=== PATIENT | male | born 1970 | race Caucasian/White ===

== ENCOUNTER 2016-11-20 19:56 | Observation (INO) | payer MEDICAID ==
[~2016-11-20] VITALS: Ht 180.3 cm; Wt 161.2 kg
[2016-11-20] MEDS ORDERED: METO-323 PO (20:11)
[2016-11-20] MEDS ORDERED: ASPI81 PO (20:11)
[2016-11-20] MEDS ORDERED: VENL-68 PO (20:11)
[2016-11-20] MEDS ORDERED: ATOR40TA28 PO (20:11)
[2016-11-20] MEDS ORDERED: TRAZ-144 PO (20:11)
[2016-11-20] MEDS ORDERED: INSLAN SQ (20:11)
[2016-11-20] MEDS ORDERED: BUSP15 PO (20:11)
[2016-11-20] MEDS ORDERED: METF500T4 PO (20:11)
[2016-11-20] MEDS ORDERED: LORazepam 2 MG/ML VIAL IVP ONE (21:15)
[2016-11-20] MEDS ORDERED: LORazepam 2 MG/ML VIAL IVP PRN ×2 (21:45→22:45)
[2016-11-20 22:14] LABS: BASOPHILS # (AUTO) 0.03 K/uL (0.00-0.20); BASOPHILS % (AUTO) 0.3 % (0.0-2.0); EOSINOPHILS # (AUTO) 0.26 K/uL (0.00-0.70); EOSINOPHILS % (AUTO) 2.45 % (1.0-6.0); HEMATOCRIT 39.3 % (41-53); HEMOGLOBIN 12.8 g/dL (13.5-17.5); LYMPHOCYTES # (AUTO) 1.6 K/uL (1.0-4.8); LYMPHOCYTES % (AUTO) 15.6 % (22.0-44.0); MEAN CORPUSCULAR HGB CONC 32.7 G/dL (31.0-37.0); MEAN CORPUSCULAR VOLUME 86 fL (80-100); MONOCYTES # (AUTO) 0.8 K/uL (0.1-1.0); MONOCYTES % (AUTO) 7.3 % (2.0-9.0); NEUTROPHILS # (AUTO) 7.8 K/uL (1.8-7.7); NEUTROPHILS % (AUTO) 74.4 % (40.0-70.0); PLATELET COUNT (AUTO) 253 K/uL (150-450); RED BLOOD CELL COUNT(AUTO) 4.58 MIL/uL (4.50-5.90); RED CELL DISTRIBUTION WIDTH 17.2 % (11.5-14.5); WHITE BLOOD COUNT (AUTO) 10.5 K/uL (4.5-11.0)
[2016-11-20] MEDS ORDERED: ASPIRIN 325 MG EC TABLET PO ONE (22:15)
[2016-11-20 22:28] LABS: ANION GAP 14 mmol/L (8-16); CALCIUM, TOTAL 9.2 mg/dL (8.8-10.5); CARBON DIOXIDE 25 mmol/L (22-29); CHLORIDE 100 mmol/L (98-107); CREATININE 1.01 mg/dL (0.60-1.30); GLOMERULAR FILTR. RATE CALC > 60 mL/min (>60); SODIUM SERUM 139 mmol/L (136-145); UREA NITROGEN, BLOOD 12 mg/dL (7-18)
[2016-11-20 22:34] LABS: ALANINE AMINOTRANSFERASE 43 U/L (12-78); ALBUMIN 3.4 g/dL (3.4-5.0); ASPARTATE AMINOTRANSFERASE 20 U/L (15-37); BILIRUBIN,TOTAL 0.4 mg/dL (0.1-1.0); TOTAL PROTEIN, SERUM 8.2 g/dL (6.4-8.2)
[2016-11-20] MEDS ORDERED: BISACODYL 10 MG RECTAL RECTAL SUPPOSITORY PR PRN ×2 (22:45→23:30)
[2016-11-20] MEDS ORDERED: ACETAMINOPHEN 325 MG TABLET PO PRN ×2 (22:45→23:45)
[2016-11-20] MEDS ORDERED: TraZODone HCL 50 MG TABLET PO SCH (23:00)
[2016-11-20] MEDS ORDERED: INSULIN ASPART 100 UNITS/ML SQ PRN ×2 (23:15→23:45)
[2016-11-20] MEDS ORDERED: DEXTROSE 50%-WATER 25 GM/50 ML SYRINGE IVP PRN ×2 (23:15→23:45)
[2016-11-20] MEDS ORDERED: ALBUTEROL SULFATE 2.5 MG/0.5 ML NEB SOLUTION NEB PRN (23:30)
[2016-11-20] MEDS ORDERED: MAGNESIUM HYDROXIDE SUSPENSION 30 ML UDCUP PO PRN (23:30)
[2016-11-20] MEDS ORDERED: ONDANSETRON HCL 4 MG/2 ML VIAL IVP PRN (23:30)
[2016-11-20] MEDS ORDERED: IPRATROPIUM BROMIDE 0.5 MG/2.5 ML NEB SOLUTION NEB PRN (23:30)
[2016-11-20 23:41] VITALS: BP 123/91
[2016-11-21] MEDS ORDERED: TraZODone HCL 50 MG TABLET PO ONE (00:30)
[2016-11-21] MEDS: LORazepam 2 MG/ML VIAL IVP PRN ×2 (03:00→08:50)
[2016-11-21 04:00] VITALS: BP 121/80
[2016-11-21 06:46] LABS: BASOPHILS # (AUTO) 0.04 K/uL (0.00-0.20); BASOPHILS % (AUTO) 0.4 % (0.0-2.0); EOSINOPHILS # (AUTO) 0.25 K/uL (0.00-0.70); EOSINOPHILS % (AUTO) 2.91 % (1.0-6.0); HEMOGLOBIN 12.7 g/dL (13.5-17.5); LYMPHOCYTES # (AUTO) 1.8 K/uL (1.0-4.8); LYMPHOCYTES % (AUTO) 20.2 % (22.0-44.0); MEAN CORPUSCULAR HEMOGLOBIN 28.6 pg (26.0-34.0); MEAN CORPUSCULAR HGB CONC 33.3 G/dL (31.0-37.0); MEAN CORPUSCULAR VOLUME 86 fL (80-100); MONOCYTES # (AUTO) 0.8 K/uL (0.1-1.0); MONOCYTES % (AUTO) 9.3 % (2.0-9.0); NEUTROPHILS # (AUTO) 5.9 K/uL (1.8-7.7); NEUTROPHILS % (AUTO) 67.1 % (40.0-70.0); PLATELET COUNT (AUTO) 238 K/uL (150-450); RED BLOOD CELL COUNT(AUTO) 4.44 MIL/uL (4.50-5.90); RED CELL DISTRIBUTION WIDTH 16.9 % (11.5-14.5); WHITE BLOOD COUNT (AUTO) 8.7 K/uL (4.5-11.0)
[2016-11-21 06:54] LABS: HEMOGLOBIN A1C 8.8 % (4.5-6.2)
[2016-11-21 07:21] VITALS: BP 120/76
[2016-11-21 07:26] LABS: IRON, SERUM 58 mcg/dL (50-175); TOTAL IRON BINDING CAPACITY 321 mcg/dL (250-450)
[2016-11-21 07:44] LABS: ALANINE AMINOTRANSFERASE 41 U/L (12-78); ALBUMIN 3.2 g/dL (3.4-5.0); ANION GAP 10 mmol/L (8-16); ASPARTATE AMINOTRANSFERASE 21 U/L (15-37); BILIRUBIN,TOTAL 0.3 mg/dL (0.1-1.0); CALCIUM, TOTAL 9.3 mg/dL (8.8-10.5); CARBON DIOXIDE 26 mmol/L (22-29); CHLORIDE 102 mmol/L (98-107); CHOL/HDL RATIO 4.5 (4.2-7.3); CREATININE 0.88 mg/dL (0.60-1.30); FERRITIN 69 ng/mL (26-388); GLOMERULAR FILTR. RATE CALC > 60 mL/min (>60); PHOSPHORUS 4.6 mg/dL (2.5-4.9); POTASSIUM 3.5 mmol/L (3.5-5.1); SODIUM SERUM 138 mmol/L (136-145); THYROID STIMULATING HORMONE 1.44 uIU/mL (0.36-3.74); TOTAL PROTEIN, SERUM 8.1 g/dL (6.4-8.2); UREA NITROGEN, BLOOD 12 mg/dL (7-18)
[2016-11-21] MEDS ORDERED: MetFORMIN HCL 500 MG TABLET PO SCH ×2 (08:00)
[2016-11-21] MEDS ORDERED: ASPIRIN 81 MG EC TABLET PO SCH ×2 (08:00)
[2016-11-21 08:29] LABS: VITAMIN B12 LEVEL 376 pg/mL (211-911)
[2016-11-21] MEDS ORDERED: ENOXAPARIN SODIUM 40 MG/0.4 ML PF SYRINGE SQ SCH ×2 (09:00)
[2016-11-21] MEDS ORDERED: METOPROLOL SUCCINATE 25 MG ER TABLET PO SCH (09:00)
[2016-11-21] MEDS ORDERED: ATORVASTATIN CALCIUM 40 MG TABLET PO SCH ×2 (09:00)
[2016-11-21] MEDS ORDERED: PANTOPRAZOLE SODIUM 40 MG DR TABLET PO SCH (09:00)
[2016-11-21] MEDS ORDERED: DOCUSATE SODIUM 100 MG CAPSULE PO SCH ×2 (09:00)
[2016-11-21] MEDS ORDERED: LISINOPRIL 5 MG TABLET PO SCH (09:00)
[2016-11-21] MEDS ORDERED: VENLAFAXINE HCL 150 MG ER CAPSULE PO SCH ×2 (09:00)
[2016-11-21 11:35] VITALS: BP 124/79
[2016-11-21 11:37] LABS: GLUCOSE COMMENT 1 Received Meds; GLUCOSE,POINT OF CARE 202 MG/DL (70-110)
[2016-11-21] MEDS ORDERED: TraZODone HCL 50 MG TABLET PO SCH (21:00)
== END 2016-11-21 12:25 | disposition left against medical advice (07) ==
LOC: EMS 19:57 → INTOOBSV 21:44 → 5S 21:44
PROVIDERS: ADMIT Internal Medicine; ATTEND Internal Medicine
DX: R56.9 Unspecified convulsions (principal); I10 Essential (primary) hypertension; I25.10 Atherosclerotic heart disease of native coronary artery without angina pectoris; E78.5 Hyperlipidemia, unspecified; E11.65 Type 2 diabetes mellitus with hyperglycemia; E66.01 Morbid (severe) obesity due to excess calories; E46 Unspecified protein-calorie malnutrition; F32.9 Major depressive disorder, single episode, unspecified; D64.9 Anemia, unspecified; Z95.0 Presence of cardiac pacemaker
CPT/HCPCS: 36415 ×2; 70450; 80053 ×2; 80061; 82270; 82607; 82728; 82746; 82962; 83036; 83540; 83550; 83735; 84100; 84146; 84439; 84443; 84484 ×2; 85025 ×2; 87081; 93005; 93306; 96372; 96374; 96376; 99285; G0378 ×2; J1650; J2060 ×2